=== PATIENT | female | born 1970 | race Caucasian/White ===

== ENCOUNTER 2019-10-02 01:38 | Emergency (ER) | payer OTHER ==
[~2019-10-02] VITALS: Ht 165.1 cm; Wt 62.1 kg
[2019-10-02] MEDS ORDERED: ZANTAC 150MG T150 M1 PO (01:58)
[2019-10-02] MEDS ORDERED: CLEOCIN HCL150 MG PO (03:26)
[2019-10-02] MEDS ORDERED: NAPROSYN500 MG PO (03:26)
[2019-10-02] MEDS ORDERED: TYLENOL WITH CO1 TA1 PO (03:26)
[2019-10-02 04:07] VITALS: BP 120/84
== END 2019-10-02 04:08 | disposition home or self-care (01) ==
LOC: ER 01:38
DX: M27.3 Alveolitis of jaws (principal); K05.10 Chronic gingivitis, plaque induced; F17.210 Nicotine dependence, cigarettes, uncomplicated; Z88.1 Allergy status to other antibiotic agents; Z88.6 Allergy status to analgesic agent; Z88.0 Allergy status to penicillin; Z88.5 Allergy status to narcotic agent; Z88.8 Allergy status to other drugs, medicaments and biological substances

== ENCOUNTER 2019-10-17 21:11 | Emergency (ER) | payer OTHER ==
[~2019-10-17] VITALS: Ht 165.1 cm; Wt 57.6 kg
[~2019-10-17 21:11] MED LIST: CLEOCIN HCL150 MG PO; NAPROSYN500 MG PO; TYLENOL WITH CO1 TA1 PO; ZANTAC 150MG T150 M1 PO
[2019-10-17 21:12] VITALS: BP 135/75
[2019-10-17] MEDS ORDERED: MOBIC15 MG PO (21:21)
== END 2019-10-17 21:30 | disposition home or self-care (01) ==
LOC: ER 21:11
DX: K02.9 Dental caries, unspecified (principal); F17.210 Nicotine dependence, cigarettes, uncomplicated; Z88.0 Allergy status to penicillin; Z88.1 Allergy status to other antibiotic agents; Z88.2 Allergy status to sulfonamides; Z88.6 Allergy status to analgesic agent

== ENCOUNTER 2019-10-19 22:04 | Emergency (ER) | payer OTHER ==
[~2019-10-19] VITALS: Ht 165.1 cm; Wt 57.6 kg
[~2019-10-19 22:04] MED LIST changes: +MOBIC15 MG PO
[2019-10-19] MEDS ORDERED: MELOXICAM15 MG PO (22:11)
[2019-10-19] MEDS ORDERED: CLEOCIN HCL300 MG PO (22:28)
[2019-10-19] MEDS ORDERED: TYLENOL WITH CO1 TA1 PO (22:28)
[2019-10-19 22:37] VITALS: BP 100/53
== END 2019-10-19 22:57 | disposition home or self-care (01) ==
LOC: ER 22:04
DX: K04.7 Periapical abscess without sinus (principal); F17.210 Nicotine dependence, cigarettes, uncomplicated; Z88.1 Allergy status to other antibiotic agents; Z88.0 Allergy status to penicillin; Z88.2 Allergy status to sulfonamides; Z88.5 Allergy status to narcotic agent; Z88.6 Allergy status to analgesic agent; Z88.8 Allergy status to other drugs, medicaments and biological substances